=== PATIENT | female | born 1940 | race Caucasian/White ===

== ENCOUNTER 2017-03-16 01:57 | Day surgery (SDC) | payer MEDICARE, OTHER ==
[2017-03-16] VITALS (8 sets, daily range): BP systolic 99–139; BP diastolic 46–76; PULSE 59–97; TEMP 36.8–37
[~2017-03-16] VITALS: Ht 162.6 cm; Wt 75.3 kg
[2017-03-16 00:58] LABS: BASO % 0.2 % (0.0-2.0); EOS % 0.1 % (0-4.0); GRAN # 13.6 (1.4-6.5); GRAN % 86.2 % (42.2-75.2); HEMOGLOBIN 15.6 g/dl (12.5-16.0); LYMPH # 1.1 (1.2-3.4); LYMPH % 6.7 % (20.0-51.0); MEAN CELL VOLUME 93 fl (80.0-100.0); MEAN CORPUSCULAR HEMOGLOBIN 31 pg (27.0-31.0); MEAN CORPUSCULAR HGB CONC 33 g/dl (33.0-37.0); MEAN PLATELET VOLUME 11.6 fl (7.4-10.4); MONO % 6.5 % (1.7-9.3); PLATELET COUNT 212 K/mm3 (130-400); RED BLOOD COUNT 5.03 M/mm3 (4.10-5.30); REDCELL DISTRIBUTION WIDTH-CV 12.5 % (11.5-14.5); WHITE BLOOD COUNT 15.7 K/mm3 (4.8-10.8)
[2017-03-16 01:12] LABS: ADJUSTED CALCIUM 10.5 mg/dL (8.4-10.2); ALBUMIN 3.9 gm/dL (3.5-5.0); BILIRUBIN,TOTAL 1.6 mg/dL (0.0-1.0); CALCIUM 10.4 mg/dL (8.4-10.2); CREATININE, serum 0.99 mg/dL (0.52-1.25); POTASSIUM 4.1 mmol/L (3.4-5.0)
[2017-03-16] MEDS ORDERED: LIPITOR 10MG10 MG PO (02:28)
[2017-03-16 02:50] LABS: PH 7 (5-8); SQUAMOUS EPITHELIAL 0-2 /hpf; URINE APPEARANCE Clear; URINE BACTERIA None Seen /hpf; URINE BILIRUBIN Negative (NEGATIVE); URINE BLOOD Negative (NEGATIVE); URINE COLOR Yellow; URINE GLUCOSE Negative (NEGATIVE); URINE KETONE Trace (NEGATIVE); URINE RBC 0-2 /hpf; URINE UROBILINOGEN Negative (NEGATIVE)
[2017-03-16] MEDS ORDERED: AMOXICILLIN 8751 TAB PO (12:37)
[2017-03-16] MEDS ORDERED: NORCO 325 MG-51 TAB PO (12:37)
[2017-03-16] MEDS ORDERED: COLACE 100100 MG/CAP PO (12:38)
[2017-03-16] MEDS ORDERED: MOTRIN 600600 MG/TAB PO (12:38)
[2017-03-16] MEDS ORDERED: ZOFRAN ODT4 MG PO (12:39)
== END 2017-03-16 21:30 | disposition home or self-care (01) ==
LOC: SDCO 01:57 → SURG 01:57 → SDCO 01:57 → SURG 01:58 → COL.ER 03:30 → EDSTATUS 03:42 → SURG 04:00 → EDSTATUS 04:53 → SDCO 21:30
PROVIDERS: Emergency Medicine
DX: K35.80 Unspecified acute appendicitis (principal); E78.5 Hyperlipidemia, unspecified; D12.6 Benign neoplasm of colon, unspecified; Z80.3 Family history of malignant neoplasm of breast; M47.9 Spondylosis, unspecified
CPT/HCPCS: OP; J0330; J1100; J1170; J1885; J2405; J2543; J2550; J2704; J2710; J2765; J3010; J7030; J7050; Q9967

== ENCOUNTER → 2017-04-08 | Outpatient (CLI) | payer MEDICARE, OTHER ==
[~2017-04-08] MED LIST: AMOXICILLIN 8751 TAB PO; COLACE 100100 MG/CAP PO; LIPITOR 10MG10 MG PO; MOTRIN 600600 MG/TAB PO; NORCO 325 MG-51 TAB PO; ZOFRAN ODT4 MG PO
== END ==
LOC: MC.RAD 09:19
DX: Z12.31 Encounter for screening mammogram for malignant neoplasm of breast (principal)

== ENCOUNTER → 2018-05-14 | Outpatient (CLI) | payer MEDICARE, OTHER | LOC: MC.RAD 11:01 | DX: Z12.31 Encounter for screening mammogram for malignant neoplasm of breast (principal) ==

== ENCOUNTER → 2019-06-23 | Outpatient (CLI) | payer MEDICARE, OTHER | LOC: MC.RAD 10:09 | DX: Z12.31 Encounter for screening mammogram for malignant neoplasm of breast (principal) ==

== ENCOUNTER 2020-01-22 09:00 | Outpatient (RCR) | payer MEDICARE, OTHER | END 2020-04-05 | disposition home or self-care (01) | LOC: MKS.ESL.PT | DX: R42 Dizziness and giddiness (principal) ==

== ENCOUNTER → 2020-06-27 | Outpatient (CLI) | payer MEDICARE | LOC: MC.RAD 14:45 | DX: Z12.31 Encounter for screening mammogram for malignant neoplasm of breast (principal) ==

== ENCOUNTER → 2021-09-05 | Outpatient (CLI) | payer MEDICARE | LOC: MC.RAD 12:56 | DX: Z12.31 Encounter for screening mammogram for malignant neoplasm of breast (principal) ==

== ENCOUNTER → 2022-11-08 | Outpatient (CLI) | payer MEDICARE | LOC: MC.RAD 12:43 | DX: Z12.31 Encounter for screening mammogram for malignant neoplasm of breast (principal) ==

== ENCOUNTER 2023-07-29 16:50 | Emergency (ER) | payer MEDICARE ==
[~2023-07-29] VITALS: Ht 162.6 cm; Wt 75.0 kg
[2023-07-29 17:15] VITALS: TEMP 97.7
[2023-07-29 18:13] LABS: BASO # 0.1 K/mm3 (0.0-0.2); BASO % 0.6 % (0.0-2.0); EOS # 0.2 K/mm3 (0.0-0.7); EOS % 2.2 % (0.0-4.0); GRAN # 5.6 K/mm3 (1.4-6.5); HEMATOCRIT 43.4 % (37.0-47.0); HEMOGLOBIN 14.8 g/dl (12.5-16.0); LYMPH # 1.7 K/mm3 (1.2-3.4); LYMPH % 20.9 % (20.0-51.0); MEAN CELL VOLUME 91 fl (80.0-100.0); MEAN CORPUSCULAR HEMOGLOBIN 31 pg (27-31); MEAN CORPUSCULAR HGB CONC 34 g/dl (33.0-37.0); MEAN PLATELET VOLUME 11.4 fl (7.4-10.4); MONO # 0.7 K/mm3 (0.1-0.6); MONO % 8.1 % (1.7-9.3); PLATELET COUNT 210 K/mm3 (130-400); RED BLOOD COUNT 4.76 M/mm3 (4.10-5.30); REDCELL DISTRIBUTION WIDTH-CV 12.5 % (11.5-14.5)
[2023-07-29 18:21] LABS: INR 1.2 (0.8-3.0); PROTHROMBIN TIME 13.4 SECONDS (9.7-12.8)
[2023-07-29 18:26] LABS: D-DIMER < 200.00 ng/mLDDu (200-230)
[2023-07-29 18:34] LABS: ALBUMIN 3.7 gm/dL (3.4-4.8); ALKALINE PHOSPHATASE 90 U/L (40-150); ANION GAP 10 mmol/L (7-16); AST,SGOT 19 U/L (5-34); BILIRUBIN,TOTAL 0.4 mg/dL (0.2-1.2); BLOOD UREA NITROGEN 21 mg/dL (10-20); CALCIUM 10.7 mg/dL (8.4-10.2); CARBON DIOXIDE 26 mmol/L (23-31); CHLORIDE 104 mmol/L (98-107); CREATININE, serum 0.89 mg/dL (0.57-1.11); GLUCOSE 97 mg/dL (70-99); POTASSIUM 4.1 mmol/L (3.5-4.5); SODIUM 140 mmol/L (136-145)
[2023-07-29 18:35] LABS: ALANINE AMINOTRANSFERASE < 6 U/L (0-55)
[2023-07-29 19:08] VITALS: BP 141/76; PULSE 80
== END 2023-07-29 19:08 | disposition home or self-care (01) ==
LOC: COL.ER 16:50
PROVIDERS: Nurse Practitioner
DX: M79.661 Pain in right lower leg (principal); M79.89 Other specified soft tissue disorders